=== PATIENT | male | born 1955 ===

== ENCOUNTER 2016-12-10 15:58 | Emergency (ER) | payer SELFPAY ==
[~2016-12-10] VITALS: Ht 177.8 cm; Wt 90.0 kg
[2016-12-10 15:59] VITALS: BP 136/93; PULSE 103; RESP 16; TEMP 98.3; O2SAT 99
--- NOTE | 2016-12-10 16:04 | PD ---
Physical Exam Date Seen by Provider: December 10, 2016 Time Seen by Provider: 16:02 Narrative 61 YOWM C/O R EYE RETINA PROBLEMS. POS FLOATER AND HAIR LIKE FB IN HIS VISION. TUESDAY. VISITING FROM [facility] WAITING FOR BED PLACEMENT Data Data Last Documented VS Vital Signs Date Time Temp Pulse Resp B/P Pulse Ox O2 Delivery O2 Flow Rate FiO2 12/10/16 15:59 98.3 103 16 136/93 99 MDM Medical Record Reviewed: Yes Supervised Visit with CHRISTINA: Edwar Dodson December 10, 2016 16:04
== END 2016-12-10 18:14 | disposition left against medical advice (07) ==
LOC: NETRI 15:58
DX: H43.391 Other vitreous opacities, right eye (principal); Z53.21 Procedure and treatment not carried out due to patient leaving prior to being seen by health care provider
CPT/HCPCS: 99281; 99282